=== PATIENT | male | born 1935 | race Caucasian/White ===

== ENCOUNTER 2017-03-08 09:33 | Inpatient (IN) | payer OTHER, BC ==
[~2017-03-08] VITALS: Ht 182.9 cm; Wt 88.1 kg
[~2017-03-08 09:33] MED LIST: AMOX TR-K CLV1 EAC4 PO; ARTIFICIAL TEAR15 M1 RIGHT EYE; ASPIR 8181 M1; ASPIR-TRIN325 MG PO; ASPIRIN81 M1 PO; AUGMENTIN875 MG PO; Aspirin PO; CALCIUM 600 +1 EACH GT; CARDIZEM30 MG PO; CIPRO500 MG PO; CITRACAL + D E1 EACH PO; CITRACAL D + H1 EACH PO; CITRACAL PLUS1 EAC1 PO; CLOTRIMAZOLE15 GM TP; COUMADIN1 MG PO; COUMADIN2 MG PO; COUMADIN2.5 MG PO; COUMADIN4 MG PO; CRANBERRY425 MG PO; CYANOCOBALAM1000 MCG PO; Coumadin,Jantoven PO; DULCOLAX10 MG PR; DUONEB 2.5-0.5 M3 ML IH; FLORASTOR250 MG PO; GARAMYCIN5 M1 BOTH EYES; HIPREX1 GM PO; LIPITOR20 MG PO; LOPERAMIDE2 MG PO; LOPRESSOR25 MG PO; LOVENOX80 MG/0.8 SC; Lipitor PO; METHENAMINE HIPP1 G1 PO; METOPROLOL TART25 MG PO; MIRALAX17 GM GT; MIRALAX255 GM PO; ONE-A-DAY WOME1 EAC1 PO; OSTEOBIFLEX; PHENAZOPYRIDIN100 MG PO; PHENYTOIN SODI100 M1 PO; PHILLIPS'400 MG/5 M PO; PRINIVIL10 MG PO; PUMPKIN SEED; PYRIDIUM100 MG PO; SERTRALINE HCL50 MG PO; TAMSULOSIN HCL0.4 MG PO; TRIAMCINOLONE A15 GM TP; TYLENOL REGULA325 MG PO; VITAMIN B 12; WARFARIN SODIUM1 MG PO; WARFARIN SODIUM4 MG PO; WARFARIN SODIUM6 MG PO; ZOLOFT100 MG PO
[2017-03-08] MEDS ORDERED: FINASTERIDE5 MG PO (10:13)
[2017-03-08 10:20] LABS: BASOPHIL COUNT 0.1 K/uL (0-0.1); EOSINOPHIL (%) 4.5 % (0-5); EOSINOPHIL COUNT 0.3 K/uL (0-0.3); HEMATOCRIT 52.7 % (38.0-50.0); IMMATURE GRANULOCYTE (%) 0.3 % (0.0-0.7); INSTRUMENT ABS NEUTROPHIL CT 5.1 K/uL; LYMPHOCYTE COUNT 1.3 K/uL (1.0-2.8); MCH 32.8 PG (29.0-34.0); MCHC 32.3 G/DL (30.0-36.0); MCV 101.7 FL (86-99); MEAN PLAT.VOLUME 8.8 uM^3 (9.0-12.4); MONOCYTE (%) 10.3 % (3-12); MONOCYTE COUNT 0.8 K/uL (0-0.8); NEUTROPHIL (%) 66.5 % (45-76); NEUTROPHIL COUNT 5.1 K/uL (1.8-6.4); PLATELET COUNT 266 K/uL (156-360); RBC DIS.WIDTH-CV 13.3 % (11.8-14.6); RBC DIS.WIDTH-SD 50.8 % (39-53); RED BLOOD COUNT 5.18 M/uL (4.00-5.50); WHITE BLOOD COUNT 7.6 K/uL (4.1-10.2)
[2017-03-08 10:29] LABS: INTER. NORMALIZED RATIO 1.1; PROTHROMBIN TIME 11.6 (9.2-11.2); PTT 39.3 (25-32)
[2017-03-08 10:34] LABS: CHLORIDE 115 mEq/L (99-109); POTASSIUM 4.1 mEq/L (3.7-5.4); SODIUM 154 mEq/L (136-147)
[2017-03-08 10:35] LABS: GLUCOSE 117 mg/dL (70-99)
[2017-03-08 10:37] LABS: ANION GAP 13 MEQ/L (2-14)
[2017-03-08 10:39] LABS: GFR ESTIMATE (CALCULATED) > 59 mL/min/
[2017-03-08 10:40] LABS: UREA NITROGEN (BUN) 20 mg/dL (9-23)
[2017-03-08 10:48] LABS: TROP-I INTERPRETATION NEGATIVE; TROPONIN-I < 0.01 ng/mL (0.0-0.30)
[2017-03-08] MEDS ORDERED: CALCIUM CITRAT1 EA15 PO (10:57)
[2017-03-08] MEDS ORDERED: ERYTHROMYC1 APPLICAT BOTH EYES (11:00)
[2017-03-08] MEDS ORDERED: KETOCONAZOLE120 ML TP (11:02)
[2017-03-08] MEDS ORDERED: GABAPENTIN400 MG PO (11:03)
[2017-03-08] MEDS ORDERED: GABAPENTIN100 MG PO (11:03)
[2017-03-08] MEDS ORDERED: NORVASC10 MG PO (11:06)
[2017-03-08] MEDS ORDERED: ASCORBIC ACID250 MG PO (11:08)
[2017-03-08] MEDS ORDERED: XARELTO20 MG PO (11:09)
[2017-03-08] MEDS ORDERED: CRANBERRY450 M1 PO (11:10)
[2017-03-08] MEDS ORDERED: METHENAMINE MA500 MG PO (11:11)
[2017-03-08] MEDS ORDERED: ANTIFUNGAL CREA15 GM TP (11:12)
[2017-03-08] MEDS ORDERED: ACETAMINOPHEN325 M1 PO (11:13)
[2017-03-08 13:30] LABS: MAGNESIUM 2.2 mg/dL (1.3-2.7)
[2017-03-08 15:00] VITALS: BP 148/90
[2017-03-08 19:00] VITALS: BP 138/86
[2017-03-08 19:16] LABS: TROP-I INTERPRETATION NEGATIVE; TROPONIN-I 0.02 ng/mL (0.0-0.30)
[2017-03-08 20:06] LABS: ADD MIUA? YES; BILIRUBIN NEGATIVE; BLOOD SMALL; COLOR YELLOW ((YELLOW)); GLUCOSE (STRIP) NEGATIVE; KETONES NEGATIVE; LEUKOCYTES LARGE; NITRITE POSITIVE; PROTEIN (STRIP) 30; SPECIFIC GRAVITY 1.021 (1.000-1.030); UROBILINOGEN 0.2 MG/DL (0.2-1.0)
[2017-03-08 20:52] LABS: RED BLOOD CELLS 0-5 /HPF (0-5)
[2017-03-08 20:53] LABS: WHITE BLOOD CELLS TNTC /HPF (0-5)
[2017-03-08 20:56] LABS: BACTERIA 3+ /HPF; CASTS PRESENT /LPF; CRYSTALS NONE SEEN; EPITHELIAL CELLS RARE /HPF; HYALINE CASTS RARE /LPF; MUCUS TRACE /LPF; UCUL ADDED? YES
[2017-03-08 21:27] LABS: POINT-OF-CARE METER ID UU14174216
[2017-03-09] VITALS (7 sets, daily range): BP systolic 122–172; BP diastolic 76–96
[2017-03-09 01:34] LABS: TROP-I INTERPRETATION NEGATIVE; TROPONIN-I 0.01 ng/mL (0.0-0.30)
[2017-03-09 06:40] LABS: ANION GAP 10 MEQ/L (2-14); CHLORIDE 112 MEQ/L (99-109); GFR ESTIMATE (CALCULATED) > 59 mL/min/; SAMPLE HEMOLYSIS CHECK 1; SAMPLE ICTERIC CHECK 0; SAMPLE LIPEMIA CHECK 0; SODIUM 148 MEQ/L (136-147); UREA NITROGEN (BUN) 18 mg/dL (9-23)
[2017-03-09 06:42] LABS: GLUCOSE 87 mg/dL (70-99)
[2017-03-09 08:24] LABS: POINT-OF-CARE METER ID UU14174216; POINT-OF-CARE USER ID ENVKC36
[2017-03-10 04:18] VITALS: BP 137/83
[2017-03-10 05:47] LABS: HEMATOCRIT 49.4 % (38.0-50.0); MCH 33.5 PG (29.0-34.0); MCHC 32.8 G/DL (30.0-36.0); MCV 102.3 FL (86-99); MEAN PLAT.VOLUME 8.7 uM^3 (9.0-12.4); PLATELET COUNT 272 K/uL (156-360); RBC DIS.WIDTH-CV 13.5 % (11.8-14.6); RBC DIS.WIDTH-SD 50.8 % (39-53); RED BLOOD COUNT 4.83 M/uL (4.00-5.50); WHITE BLOOD COUNT 9.1 K/uL (4.1-10.2)
[2017-03-10 07:22] LABS: CHLORIDE 113 mEq/L (99-109); SODIUM 152 mEq/L (136-147)
[2017-03-10 07:23] LABS: GLUCOSE 87 mg/dL (70-99)
[2017-03-10 07:25] LABS: ANION GAP 12 MEQ/L (2-14)
[2017-03-10 07:27] LABS: GFR ESTIMATE (CALCULATED) > 59 mL/min/
[2017-03-10 07:28] LABS: UREA NITROGEN (BUN) 17 mg/dL (9-23)
[2017-03-10] MEDS ORDERED: CORDARONE200 MG PO (07:55)
[2017-03-10 08:17] VITALS: BP 158/100
[2017-03-10 11:37] VITALS: BP 164/87
[2017-03-10 16:32] VITALS: BP 137/85
[2017-03-10 19:52] VITALS: BP 126/69
[2017-03-11 00:20] VITALS: BP 121/68
[2017-03-11 03:53] VITALS: BP 135/69
[2017-03-11 06:07] LABS: HEMATOCRIT 42.4 % (38.0-50.0); MCHC 33.3 G/DL (30.0-36.0); MCV 99.3 FL (86-99); MEAN PLAT.VOLUME 8.7 uM^3 (9.0-12.4); PLATELET COUNT 236 K/uL (156-360); RBC DIS.WIDTH-CV 13.3 % (11.8-14.6); RBC DIS.WIDTH-SD 49.1 % (39-53); RED BLOOD COUNT 4.27 M/uL (4.00-5.50)
[2017-03-11 06:26] LABS: ANION GAP 4 MEQ/L (2-14); CHLORIDE 111 MEQ/L (99-109); GFR ESTIMATE (CALCULATED) > 59 mL/min/; GLUCOSE 91 mg/dL (70-99); SAMPLE HEMOLYSIS CHECK 0; SAMPLE ICTERIC CHECK 0; SAMPLE LIPEMIA CHECK 0; UREA NITROGEN (BUN) 18 mg/dL (9-23)
[2017-03-11 06:28] LABS: POTASSIUM 3.6 MEQ/L (3.7-5.4); SODIUM 144 MEQ/L (136-147)
[2017-03-11 07:17] VITALS: BP 124/62
[2017-03-11 08:42] LABS: POINT-OF-CARE METER ID UU13113698
[2017-03-11] MEDS ORDERED: AUGMENTIN875 MG PO (10:09)
[2017-03-11 11:18] VITALS: BP 100/66
== END 2017-03-11 13:20 | DRG 309 ==
LOC: EME → EDBD 09:33 → EDOF 12:31 → 4EAST 12:31
PROVIDERS: Emergency Medicine; Hospitalist; Internal Medicine
DX: I47.2 Ventricular tachycardia (principal); E87.0 Hyperosmolality and hypernatremia; F01.51 Vascular dementia, unspecified severity, with behavioral disturbance; I69.351 Hemiplegia and hemiparesis following cerebral infarction affecting right dominant side; J98.11 Atelectasis; J98.4 Other disorders of lung; R13.10 Dysphagia, unspecified; E86.0 Dehydration; G40.909 Epilepsy, unspecified, not intractable, without status epilepticus; E78.5 Hyperlipidemia, unspecified; I09.9 Rheumatic heart disease, unspecified; Z87.442 Personal history of urinary calculi; I10 Essential (primary) hypertension; I25.10 Atherosclerotic heart disease of native coronary artery without angina pectoris; I25.2 Old myocardial infarction; I69.391 Dysphagia following cerebral infarction; N40.1 Benign prostatic hyperplasia with lower urinary tract symptoms; Z87.440 Personal history of urinary (tract) infections; I48.0 Paroxysmal atrial fibrillation; I69.320 Aphasia following cerebral infarction; N39.0 Urinary tract infection, site not specified; Z74.01 Bed confinement status; Z79.01 Long term (current) use of anticoagulants; Z87.891 Personal history of nicotine dependence; B96.20 Unspecified Escherichia coli [E. coli] as the cause of diseases classified elsewhere; R01.1 Cardiac murmur, unspecified
CPT/HCPCS: 70450; 71010; 80048; 81003; 82948; 83735; 84484; 85025; 85027; 85610; 85730; 87040; 87077; 87086; 87186; 92610 GN; 93005; 93306; 99281; 99285; J0282; J0696; J2060; J7050

== ENCOUNTER 2018-01-28 23:13 | Inpatient (IN) | payer OTHER, BC ==
[~2018-01-28] VITALS: Ht 172.7 cm; Wt 94.0 kg
[~2018-01-28 23:13] MED LIST changes: +ACETAMINOPHEN325 M1 PO; +ANTIFUNGAL CREA15 GM TP; +ASCORBIC ACID250 MG PO; +CALCIUM 600 +1 EA11 PO; +CORDARONE200 MG PO; +CRANBERRY250 MG PO; +ERYTHROMYC1 APPLICAT BOTH EYES; +FINASTERIDE5 MG PO; +GABAPENTIN100 MG PO; +GABAPENTIN400 MG PO; +KETOCONAZOLE120 ML TP; +LOPRESSOR100 M1 PO; +METHENAMINE MA500 MG PO; +NORVASC10 MG PO; +XARELTO20 MG PO
[2018-01-28 23:45] LABS: BASOPHIL (%) 0.6 % (0-1); BASOPHIL COUNT 0.1 K/uL (0-0.1); EOSINOPHIL (%) 0.8 % (0-5); EOSINOPHIL COUNT 0.1 K/uL (0-0.3); HEMATOCRIT 45.5 % (38.0-50.0); HEMOGLOBIN 14.8 G/DL (12.5-16.6); IMMATURE GRANULOCYTE (%) 0.4 % (0.0-0.7); LYMPHOCYTE (%) 6.3 % (15-42); LYMPHOCYTE COUNT 0.5 K/uL (1.0-2.8); MCH 32.6 PG (29.0-34.0); MCHC 32.5 G/DL (30.0-36.0); MCV 100.2 FL (86-99); MONOCYTE (%) 1.5 % (3-12); MONOCYTE COUNT 0.1 K/uL (0-0.8); NEUTROPHIL (%) 90.4 % (45-76); NEUTROPHIL COUNT 7.7 K/uL (1.8-6.4); PLATELET COUNT 202 K/uL (156-360); RBC DIS.WIDTH-CV 13.7 % (11.8-14.6); RBC DIS.WIDTH-SD 50.5 % (39-53); RED BLOOD COUNT 4.54 M/uL (4.00-5.50); WHITE BLOOD COUNT 8.5 K/uL (4.1-10.2)
[2018-01-28 23:52] LABS: INTER. NORMALIZED RATIO 1.2
[2018-01-28 23:55] LABS: PTT 28.4 SEC (25-37)
[2018-01-28 23:56] LABS: ALBUMIN 3.4 g/dL (3.2-4.8); CHLORIDE 109 mEq/L (99-109); POTASSIUM 4.6 mEq/L (3.7-5.4); SODIUM 147 mEq/L (136-147)
[2018-01-28 23:59] LABS: GLUCOSE 140 mg/dL (70-99); TOTAL PROTEIN 7.2 g/dL (6.4-8.3)
[2018-01-29] LABS: TOTAL BILIRUBIN 0.5 mg/dL (0.0-1.0)
[2018-01-29 00:02] LABS: ALKALINE PHOSPHATASE 173 IU/L (3-129); CREATININE 1.6 mg/dL (0.6-1.3); GFR ESTIMATE (CALCULATED) 44 mL/min/ (58.99-99999)
[2018-01-29 00:03] LABS: UREA NITROGEN (BUN) 39 mg/dL (9-23)
[2018-01-29 00:04] LABS: AST (GOT) 18 IU/L (2-34)
[2018-01-29 00:05] LABS: ALT (GPT) 14 IU/L (3-49)
[2018-01-29 00:06] LABS: LIPASE 2 U/L (1.0-51.0)
[2018-01-29 00:11] LABS: TROP-I INTERPRETATION NEGATIVE; TROPONIN-I 0.11 ng/mL (0.0-0.30)
[2018-01-29 01:06] LABS: APPEARANCE TURBID ((CLEAR)); BILIRUBIN NEGATIVE; BLOOD LARGE; COLOR YELLOW ((YELLOW)); GLUCOSE (STRIP) NEGATIVE; KETONES NEGATIVE; LEUKOCYTES LARGE; NITRITE NEGATIVE; PROTEIN (STRIP) 100; SPECIFIC GRAVITY 1.021 (1.000-1.030); UROBILINOGEN 0.2 MG/DL (0.2-1.0)
[2018-01-29 01:34] LABS: BACTERIA RARE /HPF; EPITHELIAL CELLS NONE SEEN /HPF; MUCUS 2+ /LPF; RED BLOOD CELLS TNTC /HPF (0-5); UCUL ADDED? YES; WHITE BLOOD CELLS TNTC /HPF (0-5)
[2018-01-29 05:33] VITALS: BP 96/49
[2018-01-29 07:05] VITALS: BP 105/56
[2018-01-29 09:02] LABS: HEMATOCRIT 41.3 % (38.0-50.0); MCH 31.9 PG (29.0-34.0); PLATELET COUNT 183 K/uL (156-360); RBC DIS.WIDTH-CV 13.8 % (11.8-14.6); RBC DIS.WIDTH-SD 52.8 % (39-53); RED BLOOD COUNT 4.01 M/uL (4.00-5.50)
[2018-01-29 09:03] LABS: HEMOGLOBIN 12.8 G/DL (12.5-16.6)
[2018-01-29 09:16] LABS: CHLORIDE 115 MEQ/L (99-109); CREATININE 1.3 MG/DL (0.6-1.3); GFR ESTIMATE (CALCULATED) 56 mL/min/ (58.99-99999); GLUCOSE 131 mg/dL (70-99); POTASSIUM 4.4 MEQ/L (3.7-5.4); SODIUM 146 MEQ/L (136-147); UREA NITROGEN (BUN) 41 mg/dL (9-23)
[2018-01-29] MEDS ORDERED: BENADRYL25 MG PO ×2 (10:20→10:24)
[2018-01-29] MEDS ORDERED: ARTIFICIAL TEAR1510 BOTH EYES ×2 (10:22→10:26)
[2018-01-29 11:10] VITALS: BP 96/55
[2018-01-29 12:43] LABS: HEMATOCRIT 39.3 % (38.0-50.0); HEMOGLOBIN 12.4 G/DL (12.5-16.6); MCV 102.6 FL (86-99)
[2018-01-29 16:00] VITALS: BP 163/72
[2018-01-29 20:51] LABS: HEMATOCRIT 39.9 % (38.0-50.0); HEMOGLOBIN 12.6 G/DL (12.5-16.6); MCV 100.8 FL (86-99)
[2018-01-29 21:05] VITALS: BP 115/60
[2018-01-30] VITALS (7 sets, daily range): BP systolic 112–155; BP diastolic 60–82
[2018-01-30 06:25] LABS: BASOPHIL (%) 0.7 % (0-1); BASOPHIL COUNT 0.1 K/uL (0-0.1); EOSINOPHIL (%) 0.9 % (0-5); EOSINOPHIL COUNT 0.1 K/uL (0-0.3); HEMOGLOBIN 12.5 G/DL (12.5-16.6); IMMATURE GRANULOCYTE (%) 0.6 % (0.0-0.7); LYMPHOCYTE (%) 9.3 % (15-42); LYMPHOCYTE COUNT 0.8 K/uL (1.0-2.8); MCH 31.6 PG (29.0-34.0); MCHC 31.3 G/DL (30.0-36.0); MONOCYTE (%) 10.4 % (3-12); MONOCYTE COUNT 0.9 K/uL (0-0.8); NEUTROPHIL (%) 78.1 % (45-76); PLATELET COUNT 171 K/uL (156-360); RBC DIS.WIDTH-CV 13.9 % (11.8-14.6); RBC DIS.WIDTH-SD 52.2 % (39-53); RED BLOOD COUNT 3.96 M/uL (4.00-5.50)
[2018-01-30 06:52] LABS: CHLORIDE 117 MEQ/L (99-109); GFR ESTIMATE (CALCULATED) > 59 mL/min/ (58.99-99999); GLUCOSE 104 mg/dL (70-99); POTASSIUM 3.8 MEQ/L (3.7-5.4); SODIUM 150 MEQ/L (136-147); UREA NITROGEN (BUN) 30 mg/dL (9-23)
[2018-01-30 13:26] LABS: HEMATOCRIT 38.4 % (38.0-50.0); HEMOGLOBIN 12.4 G/DL (12.5-16.6); MCV 100.8 FL (86-99)
[2018-01-30 13:59] LABS: SODIUM 148 MEQ/L (136-147)
[2018-01-30 14:30] LABS: HDL CHOLESTEROL 24 MG/DL (Desirable>=40); LDL CHOLESTEROL 69 mg/dL (Desirable<100); NON-HDL CHOLESTEROL 86 mg/dL (Desirable<160); TOTAL CHOLESTEROL 110 mg/dL (Desirable<200); TRIGLYCERIDES 83 MG/DL (Normal: <150)
[2018-01-30 20:52] LABS: HEMATOCRIT 38.4 % (38.0-50.0); HEMOGLOBIN 12.2 G/DL (12.5-16.6); MCV 99.5 FL (86-99)
[2018-01-31 06:41] LABS: BASOPHIL (%) 0.8 % (0-1); BASOPHIL COUNT 0.1 K/uL (0-0.1); EOSINOPHIL (%) 8.3 % (0-5); EOSINOPHIL COUNT 0.5 K/uL (0-0.3); HEMATOCRIT 35.1 % (38.0-50.0); HEMOGLOBIN 11.2 G/DL (12.5-16.6); IMMATURE GRANULOCYTE (%) 0.5 % (0.0-0.7); LYMPHOCYTE (%) 16.5 % (15-42); MCH 31.5 PG (29.0-34.0); MCHC 31.9 G/DL (30.0-36.0); MCV 98.9 FL (86-99); MONOCYTE (%) 17.8 % (3-12); MONOCYTE COUNT 1.1 K/uL (0-0.8); NEUTROPHIL (%) 56.1 % (45-76); NEUTROPHIL COUNT 3.4 K/uL (1.8-6.4); PLATELET COUNT 146 K/uL (156-360); RBC DIS.WIDTH-CV 13.5 % (11.8-14.6); RBC DIS.WIDTH-SD 50.1 % (39-53); RED BLOOD COUNT 3.55 M/uL (4.00-5.50); WHITE BLOOD COUNT 6.1 K/uL (4.1-10.2)
[2018-01-31 06:58] LABS: CHLORIDE 117 MEQ/L (99-109); CREATININE 0.8 MG/DL (0.6-1.3); GFR ESTIMATE (CALCULATED) > 59 mL/min/ (58.99-99999); GLUCOSE 99 mg/dL (70-99); POTASSIUM 3.5 MEQ/L (3.7-5.4); SODIUM 147 MEQ/L (136-147); UREA NITROGEN (BUN) 23 mg/dL (9-23)
[2018-01-31 07:24] VITALS: BP 110/60
[2018-01-31 09:58] LABS: HEMOGLOBIN A1c (GLYCOHEMOGLOB) 5.6 % (Below 5.7)
[2018-01-31 16:34] VITALS: BP 116/68
[2018-01-31 23:02] VITALS: BP 137/79
[2018-02-01 06:29] LABS: BASOPHIL (%) 0.6 % (0-1); EOSINOPHIL (%) 8.5 % (0-5); EOSINOPHIL COUNT 0.5 K/uL (0-0.3); HEMATOCRIT 37.5 % (38.0-50.0); IMMATURE GRANULOCYTE (%) 0.6 % (0.0-0.7); LYMPHOCYTE (%) 22.6 % (15-42); LYMPHOCYTE COUNT 1.4 K/uL (1.0-2.8); MCH 31.3 PG (29.0-34.0); MCV 97.7 FL (86-99); MONOCYTE (%) 15.6 % (3-12); NEUTROPHIL (%) 52.1 % (45-76); NEUTROPHIL COUNT 3.3 K/uL (1.8-6.4); PLATELET COUNT 140 K/uL (156-360); RBC DIS.WIDTH-CV 13.5 % (11.8-14.6); RBC DIS.WIDTH-SD 48.5 % (39-53); RED BLOOD COUNT 3.84 M/uL (4.00-5.50); WHITE BLOOD COUNT 6.4 K/uL (4.1-10.2)
[2018-02-01 06:52] LABS: CHLORIDE 115 MEQ/L (99-109); CREATININE 0.7 MG/DL (0.6-1.3); GFR ESTIMATE (CALCULATED) > 59 mL/min/ (58.99-99999); GLUCOSE 87 mg/dL (70-99); POTASSIUM 3.4 MEQ/L (3.7-5.4); SODIUM 146 MEQ/L (136-147); UREA NITROGEN (BUN) 16 mg/dL (9-23)
[2018-02-01 07:42] VITALS: BP 125/84
[2018-02-01 16:00] VITALS: BP 140/85
[2018-02-02 01:14] VITALS: BP 156/79
[2018-02-02 06:21] LABS: BASOPHIL (%) 0.5 % (0-1); EOSINOPHIL (%) 9.1 % (0-5); EOSINOPHIL COUNT 0.7 K/uL (0-0.3); HEMATOCRIT 38.6 % (38.0-50.0); HEMOGLOBIN 12.5 G/DL (12.5-16.6); IMMATURE GRANULOCYTE (%) 0.5 % (0.0-0.7); LYMPHOCYTE (%) 25.7 % (15-42); LYMPHOCYTE COUNT 1.9 K/uL (1.0-2.8); MCHC 32.4 G/DL (30.0-36.0); MCV 98.7 FL (86-99); MONOCYTE (%) 15.2 % (3-12); MONOCYTE COUNT 1.2 K/uL (0-0.8); NEUTROPHIL COUNT 3.7 K/uL (1.8-6.4); PLATELET COUNT 155 K/uL (156-360); RBC DIS.WIDTH-CV 13.6 % (11.8-14.6); RBC DIS.WIDTH-SD 49.7 % (39-53); RED BLOOD COUNT 3.91 M/uL (4.00-5.50); WHITE BLOOD COUNT 7.6 K/uL (4.1-10.2)
[2018-02-02 06:40] LABS: CHLORIDE 114 MEQ/L (99-109); CREATININE 0.8 MG/DL (0.6-1.3); GFR ESTIMATE (CALCULATED) > 59 mL/min/ (58.99-99999); GLUCOSE 86 mg/dL (70-99); SODIUM 148 MEQ/L (136-147); UREA NITROGEN (BUN) 14 mg/dL (9-23); VANCOMYCIN, TROUGH 15.6 MCG/ML (10-20)
[2018-02-02 07:35] VITALS: BP 145/78
[2018-02-02 15:36] VITALS: BP 163/83
[2018-02-02 23:53] VITALS: BP 150/82
[2018-02-03 06:15] LABS: CHLORIDE 112 MEQ/L (99-109); CREATININE 0.7 MG/DL (0.6-1.3); GFR ESTIMATE (CALCULATED) > 59 mL/min/ (58.99-99999); GLUCOSE 81 mg/dL (70-99); POTASSIUM 3.7 MEQ/L (3.7-5.4); SODIUM 145 MEQ/L (136-147); UREA NITROGEN (BUN) 21 mg/dL (9-23)
[2018-02-03 07:48] VITALS: BP 139/67
[2018-02-03 16:45] VITALS: BP 136/75
[2018-02-03 23:20] VITALS: BP 136/76
[2018-02-04 07:40] VITALS: BP 131/75
[2018-02-04] MEDS ORDERED: CEFEPIME HCL1 GM IV (10:40)
[2018-02-04] MEDS ORDERED: VANCOMYCIN1 GM/150 M IV (10:42)
[2018-02-04] MEDS ORDERED: PANTOPRAZOLE SO40 MG PO (10:43)
[2018-02-04] MEDS ORDERED: LOPRESSOR25 MG PO (10:44)
[2018-02-04 16:14] VITALS: BP 164/78
== END 2018-02-04 16:22 | DRG 871 ==
LOC: EME → EDBD 23:13 → EDOF 01-29 03:33 → 5EAST 01-29 03:33 → ENRESERV 01-29 03:40 → 5EAST 01-29 04:49 → ENRESERV 01-30 09:47 → CANRESERV 01-30 13:04 → ENRESERV 01-30 13:04 → ENPENDDIS 02-04 → 5EAST 02-04 16:22
PROVIDERS: Emergency Medicine; Family Medicine; Hospitalist; Nurse Practitioner Acute Care; Physician Assistant
DX: A41.02 Sepsis due to Methicillin resistant Staphylococcus aureus (principal); A41.81 Sepsis due to Enterococcus; A41.89 Other specified sepsis; N30.01 Acute cystitis with hematuria; N17.9 Acute kidney failure, unspecified; E87.2 Acidosis; R09.02 Hypoxemia; I63.9 Cerebral infarction, unspecified; E87.0 Hyperosmolality and hypernatremia; E87.6 Hypokalemia; Z66 Do not resuscitate; L89.310 Pressure ulcer of right buttock, unstageable; G40.909 Epilepsy, unspecified, not intractable, without status epilepticus; I10 Essential (primary) hypertension; E78.5 Hyperlipidemia, unspecified; I48.91 Unspecified atrial fibrillation; F01.51 Vascular dementia, unspecified severity, with behavioral disturbance; N40.0 Benign prostatic hyperplasia without lower urinary tract symptoms; I25.10 Atherosclerotic heart disease of native coronary artery without angina pectoris; I69.351 Hemiplegia and hemiparesis following cerebral infarction affecting right dominant side; I69.320 Aphasia following cerebral infarction; Z79.01 Long term (current) use of anticoagulants; Z87.891 Personal history of nicotine dependence; Z74.01 Bed confinement status; I25.2 Old myocardial infarction; Z88.2 Allergy status to sulfonamides
CPT/HCPCS: 70450; 70551; 71045; 74176; 76937; 80048; 80053; 80061; 80185; 80202; 81003; 83036; 83605; 83690; 84295; 84484; 85014; 85018; 85025; 85027; 85610; 85730; 87040; 87077; 87086; 87186; 87801; 93005; 93306; 94799; 95819; 99281; 99285; C1751; C1894; C9113; J0692; J0696; J1956; J3370; J7030; J7070; J7120